=== PATIENT | female | born 1950 | race Caucasian/White ===

== ENCOUNTER → 2017-02-19 | Outpatient (CLI) | payer MEDICARE, MEDICAID ==
[~2017-02-19] MED LIST: NO MEDS PER PT; RANI150T8 PO
== END | disposition home or self-care (01) ==
LOC: CFH 08:48
PROVIDERS: ATTEND Internal Medicine Hematology & Oncology
DX: C50.919 Malignant neoplasm of unspecified site of unspecified female breast (principal); I37.1 Nonrheumatic pulmonary valve insufficiency; I70.0 Atherosclerosis of aorta; F17.200 Nicotine dependence, unspecified, uncomplicated
CPT/HCPCS: 93306

== ENCOUNTER 2017-04-27 10:54 | Emergency (ER) | payer MEDICARE, MEDICAID ==
[~2017-04-27] VITALS: Ht 172.7 cm; Wt 79.2 kg
[2017-04-27] MEDS ORDERED: SODIUM CHLORIDE 0.9% 1,000 ML IV ONE (11:33)
[2017-04-27] MEDS ORDERED: MORPHINE SULFATE 4 MG/ML, 1ML IVPush PRN (12:00)
[2017-04-27] MEDS ORDERED: FAMOTIDINE 20 MG/2 ML IVP ONE (12:00)
[2017-04-27] MEDS ORDERED: MAALOX/HYOSCYAMINE/LIDOCAINE 45 ML BOTTLE PO ONE (12:00)
[2017-04-27] MEDS ORDERED: SODIUM CHLORIDE 0.9% 1,000ML IVBOLUS ONE (12:00)
[2017-04-27] MEDS ORDERED: ONDANSETRON 2MG/ML, 2ML IVPush ONE (12:00)
[2017-04-27 12:19] LABS: ASPARTATE AMINO TRANSFERASE 19 U/L (15-37); BLOOD UREA NITROGEN 11 mg/dL (7-18)
[2017-04-27 12:22] LABS: IS PT STATUS REG ER OR PRE ER? YES
[2017-04-27 12:33] LABS: DIFF TOTAL CELLS COUNTED 100 CELL DIFF
[2017-04-27 12:36] LABS: VERIFY COUNTS? YES
[2017-04-27 12:37] LABS: LARGE PLATELETS 1+
[2017-04-27] MEDS ORDERED: MORPHINE SULFATE 4 MG/ML, 1ML ONE (12:53)
[2017-04-27] MEDS ORDERED: MAALOX/HYOSCYAMINE/LIDOCAINE 45 ML BOTTLE ONE (12:53)
[2017-04-27] MEDS ORDERED: ONDANSETRON 2MG/ML, 2ML ONE (12:54)
[2017-04-27] MEDS ORDERED: FAMOTIDINE 20 MG/2 ML ONE (12:54)
[2017-04-27 13:21] LABS: PATH.CAST-FLAG NOT PRESENT; SPERM-FLAG NOT PRESENT; SRC-FLAG NOT PRESENT; XTAL-FLAG NOT PRESENT; YLC-FLAG NOT PRESENT
[2017-04-27 13:59] VITALS: BP 110/68
== END 2017-04-27 14:28 | disposition home or self-care (01) ==
LOC: ED 13:42
DX: K59.00 Constipation, unspecified (principal); E86.0 Dehydration; R10.84 Generalized abdominal pain; G89.29 Other chronic pain; D64.9 Anemia, unspecified; K21.9 Gastro-esophageal reflux disease without esophagitis; J44.9 Chronic obstructive pulmonary disease, unspecified; Z90.710 Acquired absence of both cervix and uterus; Z85.3 Personal history of malignant neoplasm of breast; Z90.11 Acquired absence of right breast and nipple; Z87.891 Personal history of nicotine dependence
CPT/HCPCS: 36415; 74022; 76700; 80053; 81001; 83605; 83690; 84484; 85025; 85610; 87086; 93005; 96361; 96374; 96375; 99285; J2405; J7030; S0028

== ENCOUNTER → 2017-07-01 | Outpatient (CLI) | payer MEDICARE, MEDICAID ==
[2017-07-01 17:03] LABS: BLOOD UREA NITROGEN 3 mg/dL (7-18)
== END | disposition home or self-care (01) ==
LOC: LAB 16:29
PROVIDERS: ATTEND Radiology Radiation Oncology
DX: C50.111 Malignant neoplasm of central portion of right female breast (principal); T50.8X4A Poisoning by diagnostic agents, undetermined, initial encounter
CPT/HCPCS: 36415; 82565; 84520

== ENCOUNTER → 2017-07-05 | Outpatient (CLI) | payer MEDICARE, MEDICAID ==
[~2017-07-05] MED LIST changes: +GADOBUTROL 7.5 MMOL/7.5 ML VIAL ONE
== END | disposition home or self-care (01) ==
LOC: CFH 11:29
PROVIDERS: ATTEND Radiology Radiation Oncology
DX: H70.93 Unspecified mastoiditis, bilateral (principal); C50.111 Malignant neoplasm of central portion of right female breast; J32.0 Chronic maxillary sinusitis
CPT/HCPCS: 70553; A9585

== ENCOUNTER → 2017-09-17 | Outpatient (CLI) | payer MEDICARE, MEDICAID ==
[~2017-09-17] MED LIST changes: -GADOBUTROL 7.5 MMOL/7.5 ML VIAL ONE
== END | disposition home or self-care (01) ==
LOC: ROC 13:13
PROVIDERS: ATTEND Radiology Radiation Oncology
DX: C50.911 Malignant neoplasm of unspecified site of right female breast (principal)
CPT/HCPCS: G0463

== ENCOUNTER → 2017-10-06 | Outpatient (CLI) | payer MEDICARE, MEDICAID | END | disposition home or self-care (01) | LOC: EDSTATUS 09-09 09:16 → ROC 07:47 | PROVIDERS: ATTEND Radiology Radiation Oncology | DX: C50.911 Malignant neoplasm of unspecified site of right female breast (principal) | CPT/HCPCS: G0463 ==

== ENCOUNTER → 2017-10-26 | Outpatient (CLI) | payer MEDICARE, MEDICAID | END | disposition home or self-care (01) | LOC: RAD 15:09 | PROVIDERS: ATTEND Internal Medicine Hematology & Oncology | DX: J98.4 Other disorders of lung (principal); C50.111 Malignant neoplasm of central portion of right female breast | CPT/HCPCS: 71020 ==

== ENCOUNTER → 2017-11-04 | Outpatient (CLI) | payer MEDICARE, MEDICAID | END | disposition home or self-care (01) | LOC: CFH 09:20 | PROVIDERS: ATTEND Internal Medicine Hematology & Oncology | DX: Z13.820 Encounter for screening for osteoporosis (principal); M81.0 Age-related osteoporosis without current pathological fracture; C50.111 Malignant neoplasm of central portion of right female breast | CPT/HCPCS: 77080 ==

== ENCOUNTER → 2018-02-14 | Outpatient (CLI) | payer MEDICARE, MEDICAID | END | disposition home or self-care (01) | LOC: CFH 12:56 | PROVIDERS: ATTEND Surgery | DX: Z12.31 Encounter for screening mammogram for malignant neoplasm of breast (principal); Z85.3 Personal history of malignant neoplasm of breast; Z90.11 Acquired absence of right breast and nipple; Z92.3 Personal history of irradiation | CPT/HCPCS: 77063; 77067 ==

== ENCOUNTER → 2018-03-30 | Outpatient (CLI) | payer MEDICARE, MEDICAID ==
[~2018-03-30] MED LIST changes: +RANI150T23 PO; -RANI150T8 PO
== END | disposition home or self-care (01) ==
LOC: RAD 14:22
PROVIDERS: ATTEND Nurse Practitioner Family
DX: M48.54XD Collapsed vertebra, not elsewhere classified, thoracic region, subsequent encounter for fracture with routine healing (principal); C50.911 Malignant neoplasm of unspecified site of right female breast; J06.9 Acute upper respiratory infection, unspecified; R21 Rash and other nonspecific skin eruption; E55.9 Vitamin D deficiency, unspecified; Z91.81 History of falling
CPT/HCPCS: 71046

== ENCOUNTER 2018-12-05 12:04 | Outpatient (CLI) | payer MEDICARE, MEDICAID | END 2018-12-05 23:59 | disposition home or self-care (01) | LOC: RAD 12:04 | PROVIDERS: ATTEND Family Medicine | DX: M48.54XA Collapsed vertebra, not elsewhere classified, thoracic region, initial encounter for fracture (principal); R09.89 Other specified symptoms and signs involving the circulatory and respiratory systems | CPT/HCPCS: 71046 ==

== ENCOUNTER 2019-01-02 13:29 | Outpatient (CLI) | payer MEDICARE, MEDICAID ==
[2019-01-02] MEDS ORDERED: GADOBUTROL 7.5 MMOL/7.5 ML PFS ONE (14:55)
== END 2019-01-02 23:59 | disposition home or self-care (01) ==
LOC: CFH 13:29
PROVIDERS: ATTEND Family Medicine
DX: G31.9 Degenerative disease of nervous system, unspecified (principal); Z85.3 Personal history of malignant neoplasm of breast
CPT/HCPCS: 70553; A9585

== ENCOUNTER → 2019-02-20 | Outpatient (CLI) | payer OTHER, MEDICARE, MEDICAID | END | disposition home or self-care (01) | LOC: CFH 12:42 | PROVIDERS: ATTEND Family Medicine | DX: Z12.31 Encounter for screening mammogram for malignant neoplasm of breast (principal); M81.0 Age-related osteoporosis without current pathological fracture; S22.000D Wedge compression fracture of unspecified thoracic vertebra, subsequent encounter for fracture with routine healing; X58.XXXD Exposure to other specified factors, subsequent encounter | CPT/HCPCS: 77063; 77080; 77067 ==